=== PATIENT | male | born 1970 | race Caucasian/White ===

== ENCOUNTER 2018-01-26 21:19 | Emergency (ER) | payer BC ==
[2018-01-26] MEDS ORDERED: cefTRIAXone 1,000 MG in Lidocaine 1% 4 ML IM ONE (21:52)
[2018-01-26] MEDS ORDERED: Sulfamethoxazole/Trimethoprim 800-160 MG Tab PO ONE (21:53)
--- NOTE | 2018-01-26 21:58 | EDM.PDOC ---
ED HPI GENERAL MEDICAL PROBLEM - General Chief Complaint: Upper Extremity Injury/Pain Stated Complaint: PAIN/SWOLLEN RT ARM Time Seen by Provider: 01/26/18 21:54 Source of Information: Reports: Patient - History of Present Illness INITIAL COMMENTS - FREE TEXT/NARRATIVE: HISTORY AND PHYSICAL: History of present illness: [Patient presents with cellulitis of his right elbow, he does have hardware placement normal past digit trauma Has a palms sized area of redness and there is some's serous from over the olecranon patient states there was some exudative J drainage previously my did take a wound culture the area of redness and tenderness as approximately palm size extending from the olecranon with central draining of serous fluid will to express any exudates no fluctuance at this time certainly is red and warm patient has some discomfort with movement of the elbow but is able to move his elbow No fever nausea vomiting chills sweats no chest pain shortness breath headache dizziness palpitation about a urine symptoms ] Review of systems: As per history of present illness and below otherwise all systems reviewed and negative. Past medical history: As per history of present illness and as reviewed below otherwise noncontributory. Surgical history: As per history of present illness and as reviewed below otherwise noncontributory. Social history: No reported history of drug or alcohol abuse. Family history: As per history of present illness and as reviewed below otherwise noncontributory. Physical exam: HEENT: Atraumatic, normocephalic, pupils reactive, negative for conjunctival pallor or scleral icterus, mucous membranes moist, throat clear, neck supple, nontender, trachea midline. Lungs: Clear to auscultation, breath sounds equal bilaterally, chest nontender. Heart: S1S2, regular, negative for clicks, rubs, or JVD. Abdomen: Soft, nondistended, nontender. Negative for masses or hepatosplenomegaly. Negative for costovertebral tenderness. Pelvis: Stable nontender. Genitourinary: Deferred. Rectal: Deferred. Extremities: Atraumatic, negative for cords or calf pain. Neurovascular unremarkable. Right upper extremity as per history of present illness shoulder and wrist unaffected higher limb neurovascularly intact Neuro: Awake, alert, oriented. Cranial nerves II through XII unremarkable. Cerebellum unremarkable. Motor and sensory unremarkable throughout. Exam nonfocal. Diagnostics: [CBC CMP UA CRP ESR Wound culture X-ray right elbow] Therapeutics: [Bactrim double strength by mouth now and twice a day #20 no refill 1 g Rocephin IM ] patient has spoken with his provider at [facility] and is expecting to fly out tomorrow at noon for evaluation at the [facility] Impression: [ cellulitis right elbow Question hardware involvement ] Definitive disposition and diagnosis as appropriate pending reevaluation and review of above. right elbow Pain Score (Numeric/FACES): 8 - Related Data Allergies Allergy/AdvReac Type Severity Reaction Status Date / Time No Known Allergies Allergy Verified 01/26/18 21:40 Home Meds: Home Meds Nabumetone 750 mg PO DAILY 01/26/18 [History] Past Medical History Musculoskeletal History: Reports: None - Past Surgical History Musculoskeletal Surgical History: Reports: Other (See Below) Other Musculoskeletal Surgeries/Procedures:: artificial right elbow Social & Family History - Family History Family Medical History: Noncontributory - Tobacco Use Smoking Status *Q: Never Smoker Second Hand Smoke Exposure: No - Caffeine Use Caffeine Use: Reports: Soda - Recreational Drug Use Recreational Drug Use: No Review of Systems - Review of Systems Review Of Systems: See Below ED EXAM, GENERAL - Physical Exam Exam: See Below Course - Vital Signs Last Recorded V/S: Last Vital Signs Temp 98.5 F 01/26/18 21:37 Pulse 93 01/26/18 21:37 Resp 17 01/26/18 21:37 BP 113/91 H 01/26/18 21:37 Pulse Ox 95 01/26/18 21:37 - Orders/Labs/Meds Orders: Active Orders 24 hr Category Date Time Status Elbow 2V Rt [CR] Stat Exams 01/26/18 21:50 Taken CULTURE BLOOD [BC] Stat Lab 01/26/18 22:05 Received CULTURE BLOOD [BC] Stat Lab 01/26/18 22:25 Results CULTURE WOUND [RM] Stat Lab 01/26/18 21:40 Received UA W/MICROSCOPIC [URIN] Stat Lab 01/26/18 21:30 Ordered Blood Culture x2 Reflex Set [OM.PC] Stat Oth 01/26/18 21:53 Ordered Labs: Laboratory Tests 01/26/18 01/26/18 01/26/18 Range/Units 21:30 22:05 22:05 WBC 10.84 (4.0-11.0) K/uL RBC 4.78 (4.50-5.90) M/uL Hgb 14.6 (13.0-17.0) g/dL Hct 41.5 (38.0-50.0) % MCV 86.8 (80.0-98.0) fL MCH 30.5 (27.0-32.0) pg MCHC 35.2 (31.0-37.0) g/dL RDW Std Deviation 42.2 (28.0-62.0) fl RDW Coeff of Minerva 13 (11.0-15.0) % Plt Count 202 (150-400) K/uL MPV 10.80 (7.40-12.00) fL Neut % (Auto) 71.1 (48.0-80.0) % Lymph % (Auto) 10.9 L (16.0-40.0) % [place] % (Auto) 15.9 H (0.0-15.0) % Eos % (Auto) 1.9 (0.0-7.0) % Baso % (Auto) 0.2 (0.0-1.5) % Neut # (Auto) 7.7 H (1.4-5.7) K/uL Lymph # (Auto) 1.2 (0.6-2.4) K/uL [place] # (Auto) 1.7 H (0.0-0.8) K/uL Eos # (Auto) 0.2 (0.0-0.7) K/uL Baso # (Auto) 0.0 (0.0-0.1) K/uL Nucleated RBC % 0.0 /100WBC Nucleated RBCs # 0 K/uL ESR (0-14) mm/hr Sodium 135 L (136-148) mmol/L Potassium 3.8 (3.5-5.1) mmol/L Chloride 102 (98-107) mmol/L Carbon Dioxide 26.1 (21.0-32.0) mmol/L BUN 20 H (7.0-18.0) mg/dL Creatinine 1.3 (0.8-1.3) mg/dL Est Cr Clr Drug Dosing 76.27 mL/min Estimated GFR (MDRD) 58.9 ml/min Glucose 128 H (74-106) mg/dL Calcium 8.9 (8.5-10.1) mg/dL Total Bilirubin 0.9 (0.2-1.0) mg/dL AST 35 (15-37) IU/L ALT 61 (14-63) IU/L Alkaline Phosphatase 89 (46-116) U/L C-Reactive Protein 48.20 H (0.00-0.90) mg/dL Total Protein 7.7 (6.4-8.2) g/dL Albumin 3.7 (3.4-5.0) g/dL Globulin 4.0 H (2.0-3.5) g/dL Albumin/Globulin Ratio 0.9 L (1.3-2.8) Urine Color YELLOW Urine Appearance CLEAR Urine pH 5.5 (5.0-8.0) Ur Specific [place] 1.015 (1.001-1.035) Urine Protein NEGATIVE (NEGATIVE) mg/dL Urine Glucose (UA) NEGATIVE (NEGATIVE) mg/dL Urine Ketones NEGATIVE (NEGATIVE) mg/dL Urine Occult Blood NEGATIVE (NEGATIVE) Urine Nitrite NEGATIVE (NEGATIVE) Urine Bilirubin NEGATIVE (NEGATIVE) Urine Urobilinogen 0.2 (<2.0) EU/dL Ur Leukocyte Esterase NEGATIVE (NEGATIVE) Urine RBC 0-1 (0-2/HPF) Urine WBC 0-1 (0-5/HPF) Ur Epithelial Cells RARE (NONE-FEW) Urine Bacteria FEW (NEGATIVE) Urine Mucus LIGHT (NONE-MOD) //18 Range/Units 22:05 WBC (4.0-11.0) K/uL RBC (4.50-5.90) M/uL Hgb (13.0-17.0) g/dL Hct (38.0-50.0) % MCV (80.0-98.0) fL MCH (27.0-32.0) pg MCHC (31.0-37.0) g/dL RDW Std Deviation (28.0-62.0) fl RDW Coeff of Minerva (11.0-15.0) % Plt Count (150-400) K/uL MPV (7.40-12.00) fL Neut % (Auto) (48.0-80.0) % Lymph % (Auto) (16.0-40.0) % [place] % (Auto) (0.0-15.0) % Eos % (Auto) (0.0-7.0) % Baso % (Auto) (0.0-1.5) % Neut # (Auto) (1.4-5.7) K/uL Lymph # (Auto) (0.6-2.4) K/uL [place] # (Auto) (0.0-0.8) K/uL Eos # (Auto) (0.0-0.7) K/uL Baso # (Auto) (0.0-0.1) K/uL Nucleated RBC % /100WBC Nucleated RBCs # K/uL ESR 27 H (0-14) mm/hr Sodium (136-148) mmol/L Potassium (3.5-5.1) mmol/L Chloride (98-107) mmol/L Carbon Dioxide (21.0-32.0) mmol/L BUN (7.0-18.0) mg/dL Creatinine (0.8-1.3) mg/dL Est Cr Clr Drug Dosing mL/min Estimated GFR (MDRD) ml/min Glucose (74-106) mg/dL Calcium (8.5-10.1) mg/dL Total Bilirubin (0.2-1.0) mg/dL AST (15-37) IU/L ALT (14-63) IU/L Alkaline Phosphatase (46-116) U/L C-Reactive Protein (0.00-0.90) mg/dL Total Protein (6.4-8.2) g/dL Albumin (3.4-5.0) g/dL Globulin (2.0-3.5) g/dL Albumin/Globulin Ratio (1.3-2.8) Urine Color Urine Appearance Urine pH (5.0-8.0) Ur Specific [place] (1.001-1.035) Urine Protein (NEGATIVE) mg/dL Urine Glucose (UA) (NEGATIVE) mg/dL Urine Ketones (NEGATIVE) mg/dL Urine Occult Blood (NEGATIVE) Urine Nitrite (NEGATIVE) Urine Bilirubin (NEGATIVE) Urine Urobilinogen (<2.0) EU/dL Ur Leukocyte Esterase (NEGATIVE) Urine RBC (0-2/HPF) Urine WBC (0-5/HPF) Ur Epithelial Cells (NONE-FEW) Urine Bacteria (NEGATIVE) Urine Mucus (NONE-MOD) Meds: Medications Discontinued Medications Generic Name Dose Route Start Last Admin Trade Name Freq PRN Reason Stop Dose Admin Ceftriaxone Sodium 1,000 mg/ 4 mls @ 4 mls/sec 01/26/18 21:52 01/26/18 22:25 Lidocaine HCl IM 01/26/18 21:53 4 mls/sec ONETIME ONE Administration Trimethoprim/Sulfamethoxazole 1 tab 01/26/18 21:53 01/26/18 22:25 Septra Ds PO 01/26/18 21:54 1 tab ONETIME ONE Administration Departure - Departure Time of Disposition: 23:13 Disposition: Home, Self-Care 01 Condition: Good Clinical Impression: Cellulitis - Discharge Information Referrals: Jerad Murphy MD [Primary Care Provider] - Forms: ED Department Discharge Additional Instructions: Follow-up with your provider at [facility] as scheduled Medication as prescribed Return if symptoms persist or worsen or if new concerning symptoms develop in the interim The following information is given to patients seen in the emergency department who are being discharged to home. This information is to outline your options for follow-up care. We provide all patients seen in our emergency department with a follow-up referral. The need for follow-up, as well as the timing and circumstances, are variable depending upon the specifics of your emergency department visit. If you don't have a primary care physician on staff, we will provide you with a referral. We always advise you to contact your personal physician following an emergency department visit to inform them of the circumstance of the visit and for follow-up with them and/or the need for any referrals to a consulting specialist. The emergency department will also refer you to a specialist when appropriate. This referral assures that you have the opportunity for follow-up care with a specialist. All of these measure are taken in an effort to provide you with optimal care, which includes your follow-up. Under all circumstances we always encourage you to contact your private physician who remains a resource for coordinating your care. When calling for follow-up care, please make the office aware that this follow-up is from your recent emergency room visit. If for any reason you are refused follow-up, please contact the [facility] emergency department at and asked to speak to the emergency department charge nurse. - My Orders Last 24 Hours: My Active Orders 01/26/18 21:30 UA W/MICROSCOPIC [URIN] Stat 01/26/18 21:40 CULTURE WOUND [RM] Stat 01/26/18 21:50 Elbow 2V Rt [CR] Stat 01/26/18 21:53 Blood Culture x2 Reflex Set [OM.PC] Stat 01/26/18 22:05 CULTURE BLOOD [BC] Stat 01/26/18 22:25 CULTURE BLOOD [BC] Stat - Assessment/Plan Last 24 Hours: My Active Orders 01/26/18 21:30 UA W/MICROSCOPIC [URIN] Stat 01/26/18 21:40 CULTURE WOUND [RM] Stat 01/26/18 21:50 Elbow 2V Rt [CR] Stat 01/26/18 21:53 Blood Culture x2 Reflex Set [OM.PC] Stat 01/26/18 22:05 CULTURE BLOOD [BC] Stat 01/26/18 22:25 CULTURE BLOOD [BC] Stat
--- NOTE | 2018-01-27 09:52 | CR ---
EXAM DATE: 01/26/18 PATIENT'S AGE: 47 Patient: ERNST PALACIOS Facility: [place], [place] Site . Site : 1970 Study: XRay Extremity Right elbow [id number]/23/2018 10:42:48 PM Ordering Physician: Doctor Horton Final Report: Indication: Right elbow swelling and cellulitis. Technique: Right elbow 2 views Comparison: None Findings: Hardware from an elbow joint arthroplasty and fixation of the olecranon appears in satisfactory position. Bone alignment is normal. Posttraumatic or postprocedural irregularities in the proximal ulna are present. No convincing evidence for osteomyelitis. No sign of fracture. There is superficial swelling adjacent to the olecranon. No sign of joint effusion. Impression: There is nonspecific superficial soft tissue swelling adjacent to the olecranon. No sign of soft tissue gas or osteomyelitis. No sign of hardware infection. Dictated by Oliver Woody MD @ Jan 26 2018 11:14PM (Electronic Signature) Report Signed by Proxy. ONI
== END 2018-01-26 23:25 | disposition home or self-care (01) ==
LOC: MW.ED 21:19
DX: L03.113 Cellulitis of right upper limb (principal); Z79.899 Other long term (current) drug therapy
CPT/HCPCS: 36415; 73070; 80053; 81001; 85025; 85652; 86140; 87040; 87070; 87077; 87186; 96372; 99283; A9270; J0696; J2001

== ENCOUNTER 2020-12-13 18:35 | Emergency (ER) | payer BC ==
[2020-12-13] MEDS ORDERED: Diphtheria,Pertussis(Acell),Tetanus Vaccine 0.5 ML Syringe IM ONE (19:23)
[2020-12-13] MEDS ORDERED: traMADol 50 MG Tab PO ONE (19:24)
[2020-12-13] MEDS ORDERED: Ibuprofen 600 MG Tab PO ONE (19:24)
--- NOTE | 2020-12-13 19:55 | EDM.PDOC ---
ED HPI GENERAL MEDICAL PROBLEM - General Chief Complaint: Lower Extremity Injury/Pain Stated Complaint: LT KNEE INJURY Time Seen by Provider: 12/13/20 19:18 - History of Present Illness INITIAL COMMENTS - FREE TEXT/NARRATIVE: HISTORY AND PHYSICAL: History of present illness: This is a 50-year-old gentleman with no significant past medical history who presents ER today secondary to pain to his left knee that occurred while he was playing rollerblade hockey with his sons. Patient reports that he had a stone and fell and twisted his knee and has been unable to weight-bear since. Patient denies any recent fevers, shakes, chills, nausea, vomiting, diarrhea, dysuria, frequency, urgency. Patient denies any history of hypertension, diabetes, liver, lung, kidney problems. Patient is not on any anticoagulant therapy. Patient denies any prior history of significant knee injury. Patient ports that he does have a history of an artificial right elbow. Review of systems: As per history of present illness and below otherwise all systems reviewed and negative. Past medical history: As per history of present illness and as reviewed below otherwise noncontributory. Surgical history: As per history of present illness and as reviewed below otherwise noncontributory. Social history: No reported history of drug abuse. Family history: As per history of present illness and as reviewed below otherwise noncontributor y. Physical exam: This patient was seen and evaluated during the 2019 SARS-CoV-2 novel coronavirus pandemic period. Community viral transmission is ongoing at time of this encounter and the emergency department is operating under pandemic response procedures. Constitutional: Patient is oriented to person, place, and time. Appears well- developed and well-nourished. No distress. HEENT: Moist mucous membranes Head: Normocephalic and atraumatic Eyes: Right eye exhibits no discharge. Left eye exhibits no discharge. No scleral icterus Neck: Normal range of motion. No tracheal deviation present. Cardiovascular: Normal rate and regular rhythm. Pulmonary: Effort normal, no respiratory distress. Abdominal: No distention Musculoskeletal: Normal range of motion Neurologic: Alert and oriented to person, place and time. Skin: [place], warm and dry. Psychiatric: Normal mood and affect. Behavior is normal. Judgment and thought content normal. Nursing note and vital signs have been reviewed Patient has no C-spine T-spine or L-spine tenderness to palpation. Patient has no left upper or right upper quadrant tenderness to palpation. Patient has no crepitus to palpation to the anterior chest wall. Patient is neurologically intact. Patient does not present with any signs or or symptoms that would be consistent with acute intracranial, intra-abdominal, intrathoracic, or long bone injury. All long bones have been palpated and range of motion been performed and there is no evidence of any acute pathology. Patient does have tenderness palpation to his left knee. There is a significant effusion. Patient has tenderness palpation with lateral medial stressors as well as anterior and posterior drawer test. Diagnostics: [] Therapeutics: Ultram, Motrin Knee immobilizer, crutches, nonweightbearing Assessment and plan: 50-year-old gentleman who presents ER today secondary to injury to his right knee. Patient's x-ray reveals an intra-articular fracture of his distal femur. Patient will be placed in a knee immobilizer with crutches and will be given adequate analgesia and will consult orthopedics for definitive management recommendations. X-ray reviewed with orthopedic surgery, Dr. Blanca, at at [facility] in [place]. He is agreed to accept patient in transfer for surgery tomorrow. We do not have orthopedic surgery here in [facility]. Patient has been given Dilaudid 1 mg IV as well as Zofran to assist with pain. Patient has been placed in a knee immobilizer. Definitive disposition and diagnosis as appropriate pending reevaluation and rev iew of above. Left Knee Pain Score (Numeric/FACES): 7 - Related Data Allergies Allergy/AdvReac Type Severity Reaction Status Date / Time No Known Allergies Allergy Verified 12/13/20 19:24 Home Meds: Home Meds Nabumetone 750 mg PO DAILY 01/26/18 [History] Ibuprofen 600 mg PO Q6HR PRN #30 tablet 12/13/20 [Rx] traMADol [Ultram] 50 mg PO Q6H PRN #12 tab 12/13/20 [Rx] Past Medical History Musculoskeletal History: Reports: None - Past Surgical History Musculoskeletal Surgical History: Reports: Other (See Below) Other Musculoskeletal Surgeries/Procedures:: artificial right elbow Social & Family History - Family History Family Medical History: No Pertinent Family History - Tobacco Use Tobacco Use Status *Q: Never Tobacco User Second Hand Smoke Exposure: No - Caffeine Use Caffeine Use: Reports: Soda - Recreational Drug Use Recreational Drug Use: No Review of Systems - Review of Systems Review Of Systems: See Below ED EXAM, GENERAL - Physical Exam Exam: See Below Course - Vital Signs Last Recorded V/S: Last Vital Signs Temp 98.2 F 12/13/20 21:40 Pulse 88 12/13/20 21:40 Resp 18 12/13/20 21:40 BP 146/73 H 12/13/20 21:40 Pulse Ox 98 12/13/20 21:40 - Orders/Labs/Meds Orders: Active Orders 24 hr Category Date Time Status Vaccines to be Administered [RC] PER UNIT ROUTINE Care 12/13/20 19:24 Active DME for Discharge [COMM] Stat Oth 12/13/20 19:24 Ordered Meds: Medications Discontinued Medications Generic Name Dose Route Start Last Admin Trade Name Freq PRN Reason Stop Dose Admin Diphtheria/Tetanus/Acell Pertussis 0.5 ml 12/13/20 19:23 12/13/20 19:47 Diphtheria,Pertussis(Acell),Tetanus Vaccine 0.5 Ml Syringe IM 12/13/20 19:24 0.5 ml .ONCE ONE Administration Hydromorphone HCl 1 mg 12/13/20 21:26 12/13/20 21:32 Hydromorphone 1 Mg/Ml Syringe IVPUSH 12/13/20 21:27 1 mg ONETIME ONE Administration Ibuprofen 600 mg 12/13/20 19:24 12/13/20 19:46 Ibuprofen 600 Mg Tab PO 12/13/20 19:25 600 mg ONETIME ONE Administration Ondansetron HCl 4 mg 12/13/20 21:26 12/13/20 21:33 Ondansetron 4 Mg/2 Ml Sdv IVPUSH 12/13/20 21:27 4 mg ONETIME ONE Administration Tramadol HCl 50 mg 12/13/20 19:24 12/13/20 19:46 Tramadol 50 Mg Tab PO 12/13/20 19:25 50 mg ONETIME ONE Administration Departure - Departure Time of Disposition: 19:55 Disposition: DC/Tfer to Acute Hospital 02 Condition: Good Clinical Impression: Femur fracture, left - Discharge Information Prescriptions: Ibuprofen 600 mg PO Q6HR PRN #30 tablet PRN Reason: Pain traMADol [Ultram] 50 mg PO Q6H PRN #12 tab PRN Reason: Pain Referrals: Jerad Murphy MD [Primary Care Provider] - Forms: ED Department Discharge Sepsis Event Note (ED) - Evaluation Sepsis Screening Result: No Definite Risk - Focused Exam Vital Signs: Vital Signs Temp Pulse Resp BP Pulse Ox 12/13/20 21:40 98.2 F 88 18 146/73 H 98 12/13/20 20:57 91 20 133/81 98 12/13/20 20:07 98 20 121/91 H 98 12/13/20 19:15 97.7 F 69 16 114/63 97 - My Orders Last 24 Hours: My Active Orders 12/13/20 19:24 Vaccines to be Administered [RC] PER UNIT ROUTINE DME for Discharge [COMM] Stat - Assessment/Plan Last 24 Hours: My Active Orders 12/13/20 19:24 Vaccines to be Administered [RC] PER UNIT ROUTINE DME for Discharge [COMM] Stat
--- NOTE | 2020-12-13 20:22 | CR ---
For Patients: As a result of the Cures Act, medical imaging exams and procedure reports are released immediately into your electronic medical record. You may view this report before your referring provider. If you have questions, please contact your health care provider. Indication: Trauma Technique: Three views of the left knee Comparison: None Findings/Impression: Acute displaced longitudinal fracture through the intercondylar distal femur and lateral metaphyseal cortex. Additional nondisplaced fracture component extending to the distal medial femoral diaphysis. Moderate knee joint effusion. Dictated by Nicole Zafar MD @ 12/13/2020 8:20:[address] Nicole Zafar @ Dec 13 2020 8:20PM
[2020-12-13] MEDS ORDERED: HYDROmorphone 1 MG/ML Syringe IVPUSH ONE ×2 (21:26→22:42)
[2020-12-13] MEDS ORDERED: Ondansetron 4 MG/2 ML SDV IVPUSH ONE (21:26)
[2020-12-13] MEDS ORDERED: HYDROmorphone 1 MG/ML Syringe IM ONE (23:44)
== END 2020-12-13 23:55 ==
LOC: MW.ED 18:35
DX: S72.302A Unspecified fracture of shaft of left femur, initial encounter for closed fracture (principal); S72.412A Displaced unspecified condyle fracture of lower end of left femur, initial encounter for closed fracture; Z23 Encounter for immunization; W18.30XA Fall on same level, unspecified, initial encounter; Y93.65 Activity, lacrosse and field hockey
CPT/HCPCS: 73562; 90471; 90715; 96374; 96375; 96376; 99284; A9270; J1170; J2405

== ENCOUNTER 2022-06-22 17:48 | Observation (INO) | payer BC ==
[2022-06-22] MEDS ORDERED: Sodium Chloride 0.9% 10 ML Syringe FLUSH PRN (20:05)
[2022-06-22] MEDS ORDERED: Sodium Chloride 0.9% 2.5 ML Syringe FLUSH PRN (20:05)
[2022-06-22] MEDS ORDERED: LORazepam 1 MG Tab PO ONE ×2 (20:07→21:19)
[2022-06-22 20:25] LABS: CARBON DIOXIDE,CO2 27.2 mmol/L (21.0-32.0); POTASSIUM,K 4.2 mmol/L (3.5-5.1)
[2022-06-22] MEDS ORDERED: Aspirin 81 MG Tab.Chew PO ONE (23:55)
[2022-06-23] MEDS ORDERED: Nitroglycerin 0.4 MG Tab.SL SL ONE (00:01)
[2022-06-23] MEDS ORDERED: Acetaminophen 325 MG Tab PO PRN (01:38)
[2022-06-23] MEDS ORDERED: Ondansetron 4 MG/2 ML SDV IVPUSH PRN (01:38)
[2022-06-23] MEDS ORDERED: Pantoprazole 40 MG in Sodium Chloride 0.9% 10 ML IVPUSH ONE (01:38)
[2022-06-23] MEDS ORDERED: Albuterol/Ipratropium 3.0-0.5 MG/3 ML Neb Soln NEB PRN (01:38)
[2022-06-23 02:01] LABS: HEMOGLOBIN A1C 5.5 %
[2022-06-23] MEDS ORDERED: LORazepam 2 MG/ML SDV IVPUSH ONE (02:45)
[2022-06-23] MEDS ORDERED: Melatonin 3 MG Tab PO ONE (02:48)
[2022-06-23] MEDS ORDERED: Polyethylene Glycol 3350 Powder 17 GM Packet PO PRN (07:03)
[2022-06-23] MEDS ORDERED: Levothyroxine 75 MCG Tab PO SCH (08:40)
[2022-06-23] MEDS ORDERED: Aspirin 81 MG Tab.Chew PO SCH (09:00)
[2022-06-23] MEDS ORDERED: hydrOXYzine HCl 25 MG Tab PO PRN (12:14)
[2022-06-23] MEDS ORDERED: Escitalopram 10 MG Tab PO SCH (12:30)
[2022-06-23] MEDS ORDERED: atorvaSTATin 10 MG Tab PO SCH (21:00)
== END 2022-06-23 15:30 | disposition home or self-care (01) ==
LOC: MW.ED 17:48 → MW.MS 06-23 00:02
PROVIDERS: ADMIT Student in an Organized Health Care Education/Training Program; ATTEND Student in an Organized Health Care Education/Training Program
DX: E03.9 Hypothyroidism, unspecified (principal); E21.3 Hyperparathyroidism, unspecified; R07.9 Chest pain, unspecified; Z79.899 Other long term (current) drug therapy; Z79.890 Hormone replacement therapy; Z79.82 Long term (current) use of aspirin; Z20.822 Contact with and (suspected) exposure to COVID-19
CPT/HCPCS: 36415; 70450; 71045; 80053; 80061; 82607; 83036; 84439; 84443; 84484; 85025; 87635; 93005; A9270; C9113; J3490; 99285; U0002